=== PATIENT | female | born 1950 | race African-American/Black ===

== ENCOUNTER 2024-12-29 16:20 | Emergency (ER) | payer MEDICARE, MEDICAID ==
[~2024-12-29] VITALS: Ht 152.4 cm; Wt 68.0 kg
[2024-12-29 17:55] VITALS: BP 198/87; PULSE 62; TEMP 97.6
[2024-12-29] MEDS ORDERED: AML5T PO (18:44)
[2024-12-29] MEDS ORDERED: NAPR-957 PO (18:44)
--- NOTE | 2024-12-29 18:45 | ED.PDOC ---
Musculoskeletal HPI Comments 74-year-old black woman presented to the emergency department complaining of knee swollen and extremity deformed blood pressure 189/97 patient did not take her medication Chief Complaint: Lower Extremity Time Seen by MD: 17:33 Reviewed Notes: Nurses Notes, Medications, Allergies Allergies: Coded Allergies: Penicillins (Verified Allergy, Unknown, 12/29/24) Information Source: Patient Mode of Arrival: Ambulatory Location: Bilateral Extremity Location: Finger 2, Finger 3, Finger 4, Hand, Knee Timing: Weeks, Came on: Gradually Severity: Moderate Able to Move Extremity: Yes Bear Weight: Limited Pain: Moderate Hand Dominance: Right Mechanism: None Circumstances: Arthritis, Spontaneous Onset of Symptoms: Spontaneous Symptoms: Swelling DVT Risk Factors: Immobilization Last Tetanus: UTD History of: Arthritis Associated signs and symptoms: Swelling, Weakness, Knee pain, Hand pain Past Medical History PAST MEDICAL HISTORY: Asthma, HTN Surgical History: Denies all surgeries CONSTRUCTION ASSISTANT History: No Pertinent CONSTRUCTION ASSISTANT History Family History Family History: Reviewed,noncontributory to illness, No family hx of Cancer, No family hx of DM, No family hx of Heart raeann, No family hx of HTN, No family hx of Kidney raeann, No family hx of Liver raeann, No family hx of Lung raeann, No family hx of Stroke Social History Smoker: Non-Smoker Alcohol: Denies ETOH Use Drugs: Denies Drug Use Constitutional: reports: weakness; denies: chills, diaphoresis, fatigue, fever, malaise, sweats, others EENTM: denies: blurred vision, double vision, ear bleeding, ear discharge, ear drainage, ear pain, ear ringing, eye pain, eye redness, hearing loss, mouth pain, mouth swelling, nasal discharge, nose bleeding, nose congestion, nose pain, photophobia, tearing, throat pain, throat swelling, voice changes, others Respiratory: denies: cough, hemoptysis, orthopnea, SOB at rest, shortness of breath, SOB with excertion, stridor, wheezing, others Cardiovascular: denies: chest pain, dizzy spells, diaphoresis, Dyspnea on exertion, edema, irregular heart beat, left arm pain, lightheadedness, palpitations, PND, syncope, others Gastrointestinal: denies: abdomen distended, abdominal pain, blood streaked bowels, constipated, diarrhea, dysphagia, difficulty swallowing, hematemesis, melena, nausea, poor appetite, poor fluid intake, rectal bleeding, rectal pain, vomiting, others Genitourinary: denies: abnormal vagina bleeding, burning, dyspareunia, dysuria, flank pain, frequency, hematuria, incontinence, pain, , vagina discha rge, urgency, others Neurological: denies: dizziness, fainting, headache, left sided numbness, left sided weakness, numbness, paresthesia, pre-existing deficit, right sided numbness, right sided weakness, seizure, speech problems, tingling, tremors, weakness, others Musculoskeletal: reports: joint pain, joint swelling, muscle stiffness; denies: back pain, gout, muscle pain, neck pain, others Integumetry: denies: bruises, change in color, change in hair/nails, dryness, laceration, lesions, lumps, rash, wounds, others Allergic/Immunocompromised: denies: Difficulty Healing, Frequent Infections, Hives, Itching, others Hematologic/Lymphatic: denies: anemia, blood clots, easy bleeding, easy bruising, swollen glands, others Endocrine: denies: excessive hunger, excessive sweating, excessive thirst, excessive urination, flushing, intolerance to cold, intolerance to heat, unexplained weight gain, unexplained weight loss, others Psychiatric: denies: anxiety, bipolar disorder, depression, hopeless, panic disorder, schizophrenia, sleepless, suicidal, others All Other Systems: Reviewed and Negative Physical Exam General Appearance: Mild Distress, Normal HEENT: Normal ENT Inspection, PERRL/EOMI Neck: Full Range of Motion, Non-Tender, Normal, Normal Inspection Respiratory: Chest Non-Tender, Lungs Clear, No Accessory Muscle Use, No Respiratory Distress, Normal Breath Sounds Cardiovascular: No Edema, No JVD, No Murmur, No Gallop, Normal Peripheral Pulses, Regular Rate/Rhythm Breast Exam: Deferred Gastrointestinal: No Organomegaly, Non Tender, No Pulsatile Mass, Normal Bowel Sounds, Soft Genitalia: Deferred Pelvic: Deferred Rectal: Deferred Extremities: Decreased range of motion, Inflammation, No pedal edema, Tender Musculoskeletal : Location: Bilateral Extremity Location: Finger 2, Finger 3, Finger 4, Hand, Knee Apperance: Swelling, Deformity, Limited ROM, Tenderness: Mild Neurologic: Alert, tray casting machine operator II-XII nml as Tested, No Motor Deficits, Normal Affect, Normal Mood, No Sensory Deficits Cerebellar Function: Normal Reflexes: NOT DONE Skin: Dry, Normal Color, Warm Peripheral Pulses: 1+ carotid (R), 1+ carotid (L) Lymphatic: No Adenopathy Was a procedure done? Was a procedure done?: No Differential Diagnosis EXT Differential Diagnosis: DJD, Rheumatoid X-Ray, Labs, Meds, VS Vital Signs Date Time Temp Pulse Resp B/P (MAP) Pulse Ox O2 Delivery O2 Flow Rate FiO2 12/29/24 17:55 97.6 62 16 198/87 (124) 99 97.6 12/29/24 16:21 98.7 84 16 189/97 97 98.7 X-Ray, Labs, Meds, VS Comment Course in the emergency department patient came in with most probably rheumatoid arthritis has not seen a doctor and her blood pressure is 189/97 Patient will need to follow up with the loom setter fourdrinier Also patient has high blood pressure and will be refilling her medications Time of 1ST Reevaluation: 17:00 Reevaluation 1ST: Unchanged Time of 2ND Reevaluation: 18:42 Reevaluation 2ND: Unchanged Consultation: PCP, Other (Etl Programmer) Patient Education/Counseling: Diagnosis, Treatment, Prognosis, Need For Follow Up Family Education/Counseling: Diagnosis, Treatment, Prognosis, Other (Daughter at bedside) Departure 1 Departure Time of Disposition: 18:42 Impression: Primary Impression: Rheumatoid arthritis Additional Impression: Uncontrolled hypertension Disposition: 01 HOME / SELF CARE / HOMELESS Condition: Fair Additional Instructions: Local heat and follow up with the loom setter fourdrinier e-Prescriptions Naproxen (Naproxen) 375 Mg Tab 1 TAB PO BID for 30 Days, #60 TAB 5 Refills Prov: ARNULFO GONZALEZ MD 12/29/24 Amlodipine Besylate (NORVASC TABLET) 5 Mg Tb 1 TAB PO DAILY for 30 Days, #30 TAB 5 Refills Prov: ARNULFO GONZALEZ MD 12/29/24 Discharged With: Self, Relative Critical Care Note Critical Care Time?: No Stability Stability form required: No Heart Score Heart Score: Heart Score Response (Comments) Value History N/A 0 EKG N/A 0 Age >65 2 Risk Factors 1 or 2 risk factors 1 Troponin N/A 0 Total 3 ARNULFO GONZALEZ MD Dec 29, 2024 18:45
[2024-12-29 18:46] VITALS: RESP 16; O2SAT 99
== END 2024-12-29 18:52 | disposition home or self-care (01) ==
LOC: ER 16:20
DX: M06.9 Rheumatoid arthritis, unspecified (principal); I10 Essential (primary) hypertension; J45.909 Unspecified asthma, uncomplicated; Z88.0 Allergy status to penicillin